=== PATIENT | female | born 1985 | race Caucasian/White ===

== ENCOUNTER 2016-11-19 12:39 | Day surgery (SDC) | payer SELFPAY ==
[~2016-11-19] VITALS: Ht 167.6 cm; Wt 87.5 kg
[~2016-11-19 12:39] MED LIST: ATARAX10 MG PO; CALCIUM 500 MG1 EACH PO; CALCIUM PO; FERROUS GLUCON240 MG PO; IBUPROFEN800 MG PO; MACROBID100 MG PO; NOHOMEMEDS; PRENATAL TABLE1 EAC3 PO; ROBITUSSIN AC,T10 ML PO; TYLENOL REGULA325 MG PO
[2016-11-19 13:05] VITALS: BP 117/82
[2016-11-19] MEDS ORDERED: IBUPROFEN800 MG PO (15:52)
[2016-11-19] MEDS ORDERED: HYDROCODON-ACE1 EAC7 PO (15:52)
[2016-11-19 16:35] VITALS: BP 123/80
[2016-11-19 17:35] VITALS: BP 116/64
== END 2016-11-19 18:00 | disposition home or self-care (01) ==
LOC: SDC 12:39
PROC: 10D17ZZ Extraction of Products of Conception, Retained, Via Natural or Artificial Opening (ICD-10-PCS; principal; 2016-11-19)
DX: O02.1 Missed abortion (principal); Z3A.08 8 weeks gestation of pregnancy; Z82.49 Family history of ischemic heart disease and other diseases of the circulatory system; Z80.0 Family history of malignant neoplasm of digestive organs; Z80.42 Family history of malignant neoplasm of prostate; Z83.3 Family history of diabetes mellitus
CPT/HCPCS: 88305; J0131; J0330; J0690; J1100; J1170; J2250; J2405; J2790; J3010

== ENCOUNTER → 2018-01-28 | Outpatient (CLI) | payer OTHER ==
[~2018-01-28] VITALS: Ht 167.6 cm; Wt 87.0 kg
[~2018-01-28] MED LIST changes: +HYDROCODON-ACE1 EAC7 PO; +IRON325 M1 PO
[2018-01-28 13:25] VITALS: BP 122/60
== END | disposition home or self-care (01) ==
LOC: IVINF 12:59
DX: Z34.80 Encounter for supervision of other normal pregnancy, unspecified trimester (principal); Z31.82 Encounter for Rh incompatibility status; Z3A.00 Weeks of gestation of pregnancy not specified; Z67.91 Unspecified blood type, Rh negative
CPT/HCPCS: 96372; J2790